=== PATIENT | female | born 1970 | race Caucasian/White ===

== ENCOUNTER 2016-08-11 13:24 | Observation (INO) | payer BC, SELFPAY ==
--- NOTE | ~2016-08-11 | HP ---
History And Physical [place] [id number] [facility] [place]. [address] NAME: EUFEMIA REYNOLDS : 70 STATUS : DIS Rina PAT#: [id number] AGE: 46 ADM/REG DATE : 08/11/16 MR#: [id number] REPORT SERV DATE: 08/13/16 DICTATED BY: RADHA IBRAHIM DATE: 08/12/16 REPORT STATUS : Draft TRANSCRIBED BY: MODBecky DATE: 08/12/16 DATE OF ADMISSION: 08/11/2016 CHIEF COMPLAINT: "I think I am having a fibromyalgia flare with pain all over, chest pain, elevated blood pressure and blurred vision that resolved in the ER." HISTORY OF PRESENT ILLNESS: This is a pleasant 46-year-old, morbidly obese, white female with no known history of CAD, who underwent a low-risk cardiac PET in September 2015 while undergoing a negative chest pain observation unit workup. She does have cardiac risk factors of diabetes, tobacco use, dyslipidemia, and high blood pressure. She does report that she has chronic pain including chronic back pain and she went to the emergency room yesterday because she thought she was having a fibromyalgia flare up with tenderness throughout her body. She reports that she did have what sounds like a sinus headache over her right eye with some associated blurred vision after pain behind that eye for three days. She does report pain throughout her body including chest for approximately three days. She proceeded to the emergency room because she was having continued symptoms and noted that her blood pressure was quite elevated and reports that it is 180/100 at home. There was no exertional component to the chest pain. She does report palpitations and that she has episodes of palpitations occasionally. She denies any dyspnea on exertion, nausea, or any other symptoms other than what was previously described. She is sedentary. She has no radiation of the chest pain and reports that it is tender to palpation as was the rest of the pain in her body and she says this is something that is chronically goes on with fibromyalgia. She denies any recent fever or chills. She tells me that her white blood cell count is always elevated and denies any dysuria. No syncope. She did say when she was having blurred vision that she felt like she was going to have everything black out but she did not. Again no associated symptoms including diaphoresis. No orthopnea or paroxysmal nocturnal dyspnea. PAST MEDICAL HISTORY: 1. Diabetes mellitus type 2, diet controlled. 2. Dyslipidemia, on no medications. 3. Hypothyroidism, on replacement. 4. Hypertension. 5. Obstructive sleep apnea. Compliant with nasal CPAP. 6. Fibromyalgia with reported flare at this time. 7. Asthma. 8. Arthritis. 9. Radiculopathy. 10.History of nephrolithiasis. 11.Morbid obesity. 12.Migraine headaches. 13.Sinusitis. 14.Ongoing tobacco use. 15.Renal cyst. SURGICAL HISTORY: History And Physical [address] [place]. [address] NAME: EUFEMIA REYNOLDS : 70 STATUS : DIS Rina PAT#: [id number] AGE: 46 ADM/REG DATE : 08/11/16 MR#: [id number] REPORT SERV DATE: 08/13/16 DICTATED BY: RADHA IBRAHIM DATE: 08/12/16 REPORT STATUS : Draft TRANSCRIBED BY: JOSHUA DATE: 08/12/16 1. Splenectomy. 2. Cervical fusion. 3. Cholecystectomy. SOCIAL HISTORY: . Positive tobacco use. Denies alcohol or illicit drug use. FAMILY HISTORY: Father with CAD and CABG in his 40s, remains alive at this time. REVIEW OF SYSTEMS: As above per HPI, all other systems reviewed and negative. ALLERGIES: SUDAFED; PREDNISONE, HEART RACES; AND ADHESIVE TAPE. HOME MEDICATIONS: Please review list that is in the chart. PHYSICAL EXAMINATION: VITAL SIGNS: Blood pressure currently 113/69, blood pressure was elevated 181/105 in the emergency department, heart rate 70, temperature 98, oxygen saturation 96% on room air, respiratory rate 22. Height 5 feet 7 inches, weight 122.07 kg. GENERAL: Well developed, over nourished. Obese. In no apparent distress. HEENT: Head normocephalic. No xanthelasma. Sclera clear, anicteric. Moist mucous membranes without pallor. No lymphadenopathy. No deficits noted. NECK: Trachea midline. Supple. No thyromegaly, JVD, or bruits. RESPIRATORY: Unlabored respirations. Breath sounds clear bilaterally to posterior auscultation. No wheezes, rhonchi or crackles. CARDIOVASCULAR: Regular rate and rhythm. No murmur, rub, or gallop appreciated. No chest wall tenderness to palpation. ABDOMEN: Soft, nontender, and nondistended. Active bowel sounds auscultated x4 quadrants. No organomegaly and no masses. No aortic bruit. EXTREMITIES: DP/PT and radial pulses 2+ bilaterally. No clubbing, cyanosis, or edema. SKIN: Warm, dry, intact. No rash. Normal turgor. MUSCULOSKELETAL: Moves all extremities in bed without difficulty. Equal healthcare project manager strength noted. The patient reports tenderness to palpation to multiple points throughout her body which she reports is consistent with fibromyalgia flare ups. NEURO/PSYCH: Alert and oriented x3 with no acute distress. Affect appropriate to current situation. LABORATORY DATA: Urinalysis: No urinary tract infection with only 3 wbc's. CBC: White blood cell count 16.1, hemoglobin 11.7, hematocrit 36.9, platelets 388. Prior CBC: White blood cell count was 15.3 (note chronic elevated white blood cell count). CMP: Sodium 139, potassium 3.9, creatinine 1.1, glucose 110, total bilirubin 0.4, alkaline phosphatase 136, AST 33, ALT 42. Troponin less than 0.02 x2. D-dimer is negative at 0.48. STUDIES: Chest x-ray, no acute cardiopulmonary disease. EKGs: Normal sinus rhythm with no ischemia noted on EKGs. Telemetry: Sinus rhythm with no events. History And Physical [address] [address] NAME: EUFEMIA REYNOLDS : 70 STATUS : DIS Rina PAT#: [id number] AGE: 46 ADM/REG DATE : 08/11/16 MR#: [id number] REPORT SERV DATE: 08/13/16 DICTATED BY: RADHA IBRAHIM DATE: 08/12/16 REPORT STATUS : Draft TRANSCRIBED BY: JOSHUA DATE: 08/12/16 ASSESSMENT AND PLAN: 1. Atypical chest pain. The patient reports all over pain with tenderness to palpation that has been ongoing for approximately three days. There is no exertional component. Negative troponins with a troponin less than 0.02 x2, EKG is benign, D-dimer is negative, and chest x-ray with no acute processes. The patient had a low-risk cardiac PET scan in September 2015. The patient feels her chest pain is associated with a fibromyalgia flare that is occurring at this time. She wishes to be discharged to home. I discussed with rounding weigher production for [facility], Dr. Neal and he agrees with discharge home at this time. Followup with primary care provider in one-two weeks. 2. Near-syncope and blurred vision. The patient reports that this was after she had a headache over the right eye for several days that she reports is in the setting of sinusitis. She has had prior evaluation for migraine headaches. Her symptoms are fully resolved in the emergency room and she has had no recurrent symptoms. I reviewed with Dr. Neal and no further workup at this time. The patient is to follow up with primary care provider. 3. Hypertension. This is poorly controlled with an initial blood pressure in the ER that was quite elevated. Given that she has diabetes, I will institute lisinopril as first- line agent for renal protection. She is to check blood pressure daily record and bring in to primary care provider office in one week. 4. Hyperlipidemia. We will start her on atorvastatin 20 mg p.o. daily evening and she is to also follow a low-fat diet. She is to follow up with her primary care provider for further monitoring and treatment. Please note, she recently had her cholesterol checked by PCP and it was noted with a total cholesterol of 291 with LDL of 210, triglycerides 214, and HDL 39. Therefore, it is prudent to begin statin therapy. The patient again will follow up with PCP. 5. Fibromyalgia with reported flare up. The patient is not on any medications for fibromyalgia and I encouraged her to follow up with primary care for further monitoring. 6. Reported palpitations. There have been no events on telemetry at this time. Followup with PCP. 7. Morbid obesity. Encouraged lifestyle changes. 8. Tobacco use. Smoking cessation advised. The patient will be discharged to home at this time and will follow up as per discussion above. KL/MODL Radha Ibrahim NP / [id number] CC: Kimberlee Aj, MSN, MINISTER-BC Marcus Reynolds M.D.
[2016-08-11 11:59] LABS: BASOPHILS 0.5 %; BASOPHILS ABSOLUTE 0.07 10/3/uL (0.0-0.16); EOSINOPHILS 0.7 %; EOSINOPHILS ABSOLUTE 0.11 10/3/uL (0.0-0.53); ER CBC TAT 0 Hrs 05 Mins; HEMATOCRIT 38.6 % (36.0-48.0); HEMOGLOBIN 12.7 g/dL (12.0-16.0); IMMATURE GRANULOCYTES 0.3 %; IMMATURE GRANULOCYTES ABSOLUTE 0.05 10/3/uL (0.0-0.11); LYMPHOCYTES 24.9 %; MEAN CORPUS HGB CONC 32.9 g/dL (32.0-36.0); MEAN CORPUSCULAR HEMOGLOB 28.7 pg (26.0-34.0); MEAN CORPUSCULAR VOLUME 87.3 fL (80-100); MEAN PLATELET VOLUME 10.9 fL (9.2-13.0); MONOCYTES 7.3 %; MONOCYTES ABSOLUTE 1.11 10/3/uL (0.21-1.20); NEUTROPHILS 66.3 %; NEUTROPHILS ABSOLUTE 10.15 10/3/uL (2.02-8.40); PLATELET COUNT 441 10/3/uL (150-400); RBC DISTRIBUTION WIDTH 15.7 % (12.0-16.0); RED CELL COUNT 4.42 10/6/uL (4.0-5.6); WHITE BLOOD CELLS 15.3 10/3/uL (4.5-10.5)
[2016-08-11 12:01] LABS: MANUAL DIFF NO %
[2016-08-11 12:15] LABS: ALBUMIN 3.5 G/DL (3.5-5.0); ALKALINE PHOSPHATASE 136 U/L (45-117); BUN (BLOOD UREA NITROGEN) 13 MG/DL (6-23); CALCIUM, SERUM 8.9 MG/DL (8.5-10.4); CHLORIDE, SERUM 105 MMOL/L (96-112); CO2 (CARBON DIOXIDE) 24 MMOL/L (24-34); GFR AFRICAN AMERICAN 70 ML/MIN (>=60); GFR NON AFRICAN AMERICAN 60 ML/MIN (>=60); GLUCOSE, SERUM 110 MG/DL (60-99); SGPT(ALT) 42 U/L (5-65); SODIUM, SERUM 139 MMOL/L (135-148); TOTAL BILIRUBIN 0.4 MG/DL (0-1.2); TOTAL PROTEIN 8.2 G/DL (6.0-8.5); TROPONIN I <0.02 NG/ML (<0.05)
[2016-08-11 12:22] LABS: A/G RATIO 0.7 (0.7-1.9); GLOBULIN 4.7 G/DL (2.5-4.1)
[2016-08-11 12:23] LABS: POTASSIUM, SERUM 3.9 MMOL/L (3.5-5.3)
[2016-08-11 12:27] LABS: SGOT(AST) 33 U/L (5-40)
[~2016-08-11 13:24] MED LIST: AMB5 PO; ATEN25 PO; ATV1 PO; CENTRUM PO; ENDOCET1 TA3 PO; FLECTOR PATCH TOP; GLUCOTROL5 PO; KDUR10 PO; KLOR-CON M2020 MEQ PO; LEVOTHYROXIN150 MCG PO; PERCOCET1 TA4 PO; PRAVAC PO; PRILOSEC40 MG PO; PROAIR HFA INH; PROVHFA INH; SUCR PO; SYN1 PO; X5 PO; ZANAFLEX 4 MG TA4 MG PO; ZYRTEC ALLGY10 MG PO
[2016-08-12 08:00] LABS: BASOPHILS 0.4 %; BASOPHILS ABSOLUTE 0.07 10/3/uL (0.0-0.16); EOSINOPHILS 1.4 %; EOSINOPHILS ABSOLUTE 0.23 10/3/uL (0.0-0.53); HEMATOCRIT 36.9 % (36.0-48.0); HEMOGLOBIN 11.7 g/dL (12.0-16.0); IMMATURE GRANULOCYTES 0.2 %; IMMATURE GRANULOCYTES ABSOLUTE 0.04 10/3/uL (0.0-0.11); LYMPHOCYTES 24.4 %; LYMPHOCYTES ABSOLUTE 3.92 10/3/uL (0.67-4.30); MEAN CORPUS HGB CONC 31.7 g/dL (32.0-36.0); MEAN CORPUSCULAR HEMOGLOB 28.6 pg (26.0-34.0); MEAN PLATELET VOLUME 10.5 fL (9.2-13.0); MONOCYTES 7.3 %; MONOCYTES ABSOLUTE 1.18 10/3/uL (0.21-1.20); NEUTROPHILS 66.3 %; NEUTROPHILS ABSOLUTE 10.63 10/3/uL (2.02-8.40); PLATELET COUNT 388 10/3/uL (150-400); RBC DISTRIBUTION WIDTH 15.8 % (12.0-16.0); RED CELL COUNT 4.09 10/6/uL (4.0-5.6); WHITE BLOOD CELLS 16.1 10/3/uL (4.5-10.5)
[2016-08-12 08:01] LABS: MANUAL DIFF NO %; MEAN CORPUSCULAR VOLUME 90.2 fL (80-100)
[2016-08-12 10:12] LABS: ASCORBIC ACID (UR NOT ORDER) NEG (NEG); BILIRUBIN, URINE NEGATIVE (NEG); KETONE, URINE NEGATIVE (NEG); LEUKOCYTE ESTERASE(NOT OR NEG (NEG); WBC (NOT ORDERED) (RFLEX) 3 (0-5)
[2016-08-12] MEDS ORDERED: LIPITOR20 (10:54)
[2016-08-12] MEDS ORDERED: PRIN10 PO (10:54)
== END 2016-08-12 11:44 | disposition home or self-care (01) ==
LOC: ER 13:24 → CDU1 14:50
PROVIDERS: Emergency Medicine; Nurse Practitioner Family
DX: R07.89 Other chest pain (principal); I10 Essential (primary) hypertension; M79.7 Fibromyalgia; D72.829 Elevated white blood cell count, unspecified; E11.9 Type 2 diabetes mellitus without complications; E03.9 Hypothyroidism, unspecified; G47.33 Obstructive sleep apnea (adult) (pediatric); J45.909 Unspecified asthma, uncomplicated; M19.90 Unspecified osteoarthritis, unspecified site; E66.01 Morbid (severe) obesity due to excess calories; G43.909 Migraine, unspecified, not intractable, without status migrainosus; J32.9 Chronic sinusitis, unspecified; F17.210 Nicotine dependence, cigarettes, uncomplicated; R55 Syncope and collapse; Z87.442 Personal history of urinary calculi; Z98.1 Arthrodesis status; Z90.49 Acquired absence of other specified parts of digestive tract; Z88.8 Allergy status to other drugs, medicaments and biological substances; Z88.2 Allergy status to sulfonamides; Z79.899 Other long term (current) drug therapy; Z79.891 Long term (current) use of opiate analgesic
CPT/HCPCS: 71010; 80053; 81001; 82962; 84484; 85025; 85379; 93005; 96374; 96375; 99285; A9270-GY; G0378; J2405